=== PATIENT | male | born 2000 | race Caucasian/White ===

== ENCOUNTER 2023-04-08 12:20 | Outpatient (REF) | payer OTHER, BC, SELFPAY ==
[2023-04-08 15:06] LABS: SARS-CoV-2 Ag NEGATIVE (NEGATIVE)
[2023-04-09 15:21] LABS: SARS-CoV-2 NAA INCONCLUSIVE (NOT DETECTE)
== END 2023-04-08 12:21 | disposition home or self-care (01) ==
LOC: LAB 12:20
PROVIDERS: PCP Family Medicine; Visit Provider Family Medicine
DX: J21.9 Acute bronchiolitis, unspecified (principal)
CPT/HCPCS: 87635; 87811